=== PATIENT | female | born 2005 | race African-American/Black ===

== ENCOUNTER 2025-06-27 21:14 | Emergency (ER) | payer OTHER, SELFPAY ==
[2025-06-27 21:26] VITALS: BP 135/88; PULSE 108; RESP 20; TEMP 37.6; O2SAT 100
[2025-06-27 22:01] VITALS: BP 121/84; PULSE 99; RESP 17; O2SAT 100
[2025-06-27] MEDS: ACETAMINOPHEN 500 MG TABLET 1000 MG PO (22:21)
[2025-06-27 22:33] LABS: Add Urine Microscopic? YES; Appearance Urine Cloudy (Clear); Glucose Urine UA Negative (Negative); Leukocyte Esterase Ur Negative LEU/UL (Negative); Nitrate Urine Negative (Negative); Non Pathogenic Casts 0-2; Specific Grav Ur 1.016 (1.001-1.035)
--- NOTE | 2025-06-27 22:41 | ED_ITS ---
HPI - General Adult General Chief complaint: Headache Stated complaint: chills, frequent urination, headache Time Seen by Provider: 06/27/25 21:49 History of Present Illness HPI narrative: Patient 20-year-old female who presents emergency department with chief complaint of chills body aches and frequent urination. The patient states she started having headache around 1600 today reports that she has taken some DayQuil and has had no relief. Patient reports he has had urinary frequency but no burning with urination patient does report that she had some cramping in her abdomen as well Related Data Allergies Allergy/AdvReac Type Severity Reaction Status Date / Time No Known Allergies Allergy Verified 06/27/25 21:28 Review of Systems Review of Systems: A 10 system review of systems was completed on the patient and is negative except for what is stated in the HPI. Nursing and ancillary documentation was reviewed. Exam Narrative: GENERAL: Well-appearing, well-nourished, and in no acute distress. HEAD: Normocephalic, atraumatic. EYES: PERRLA and EOMI. ENT: Nares clear, no rhinorrhea or epistaxis. Mucous membranes moist. NECK: Supple. CHEST: Clear to auscultation. No respiratory distress. HEART: Regular rate and rhythm. No murmur heard. Normal peripheral pulses. ABDOMEN: Soft, nontender, nondistended, normal active bowel sounds. EXTREMITIES: Normal range of motion. No edema. SKIN: Warm, dry, no rash. NEURO: No focal deficits. Alert and oriented x3. PSYCH: Normal mood and affect. Course Vital Signs Vital signs: Vital Signs Temperature 37.6 C H 06/27/25 21:26 Pulse Rate 108 H 06/27/25 21:26 Respiratory Rate 20 06/27/25 21:26 Blood Pressure 135/88 06/27/25 21:26 Pulse Oximetry 100 06/27/25 21:26 Oxygen Delivery Room Air 06/27/25 21:26 Temperature 37.1 C 06/27/25 23:02 Pulse Rate 92 06/27/25 23:02 Respiratory Rate 17 06/27/25 23:02 Blood Pressure 122/79 06/27/25 23:02 Pulse Oximetry 100 06/27/25 23:02 Oxygen Delivery Room Air 06/27/25 21:26 Medical Decision Making MDM Narrative Medical decision making narrative: Differential diagnosis includes upper respiratory infection, UTI, COVID, flu, RSV, strep Patient is hemodynamically stable Patient is positive for COVID Vital Signs Vital Signs: Vital Signs Temperature 37.6 C H 06/27/25 21:26 Pulse Rate 108 H 06/27/25 21:26 Respiratory Rate 20 06/27/25 21:26 Blood Pressure 135/88 06/27/25 21:26 Pulse Oximetry 100 06/27/25 21:26 Oxygen Delivery Room Air 06/27/25 21:26 Temperature 37.1 C 06/27/25 23:02 Pulse Rate 92 06/27/25 23:02 Respiratory Rate 17 06/27/25 23:02 Blood Pressure 122/79 06/27/25 23:02 Pulse Oximetry 100 06/27/25 23:02 Oxygen Delivery Room Air 06/27/25 21:26 Lab Data Labs: Lab Results 06/27/25 06/27/25 Range/Units 22:16 22:49 Urine Color Yellow (Yellow) Urine Appearance Cloudy H (Clear) Urine pH 6.5 (5.0-9.0) Ur Specific [place] 1.016 (1.001-1.035) Urine Protein Negative (Negative) mg/dL Urine Glucose (UA) Negative (Negative) mg/dL Urine Ketones 2+ H (Negative) mg/dL Ur Blood (Man) Negative (Negative) Urine Nitrate Negative (Negative) Urine Bilirubin Negative (Negative) Urine Urobilinogen 1.0 (<2.0) mg/dL Leukocyte Esterase Rfl Negative (Negative) WALI/UL Urine RBC 0-2 (0-2) /hpf Urine WBC 0-5 (0-3) /hpf Ur Squamous Epith Cells Occasional (Few) /hpf Urine Bacteria Rare /hpf Urine Casts 0-2 POC Urine HCG, Qual Negative (Negative) Influenza A (RT-PCR) Negative (Negative) Influenza B (RT-PCR) Negative (Negative) RSV (RT-PCR) Negative (Negative) SARS-CoV-2 RNA (RT-PCR) Positive A (Negative) Group A Strep (PCR) Not detected (Negative) Discharge Plan Discharge Clinical Impression: COVID-19 Patient Disposition: Home Condition: Stable Instructions: Antibiotic Form, COVID-19 (Coronavirus Disease 2019) (ED) Patient Language: Chinese Prescriptions: New benzonatate 200 mg capsule 200 mg PO TID PRN (Reason: cough) Qty: 21 0RF Follow-up/Referrals: PHYSICIAN NOT ON STAFF,NONSTAFF [Primary Care Provider] Time of Disposition: 23:17
[2025-06-27 22:50] VITALS: TEMP 37.1
[2025-06-27 22:50] LABS: BEDSIDEPREGUCG Negative (Negative)
[2025-06-27 22:51] LABS: Strep Group A RT-PCR NOT DETECTED (Negative)
[2025-06-27 23:02] VITALS: BP 122/79; PULSE 92; RESP 17; TEMP 37.1; O2SAT 100
[2025-06-27 23:03] LABS: Influenza A QL RT-PCR Negative (Negative); Influenza B QL RT-PCR Negative (Negative); RSV RNA, RT-PCR Negative (Negative); SARS-CoV-2 RNA PCR Positive (Negative)
[2025-06-27 23:29] VITALS: BP 122/79; PULSE 98; RESP 18; O2SAT 100
== END 2025-06-27 23:30 | disposition home or self-care (01) ==
PROVIDERS: Emergency Provider Emergency Medicine
DX: U07.1 COVID-19 (principal)
CPT/HCPCS: 81001; 81025; 87637; 87651; 99283; A9270